=== PATIENT | male | born 1960 | race African-American/Black ===

== ENCOUNTER 2020-05-01 16:49 | Emergency (ER) | payer SELFPAY ==
[2020-05-01 17:13] VITALS: BP 103/60
[2020-05-01] MEDS ORDERED: NORMAL SALINE 1000 ML 1,000 ML IV ONE (18:39)
--- NOTE | 2020-05-01 18:43 | ER Document Report ---
ED General - General Chief Complaint: Fever Stated Complaint: FEVER Time Seen by Provider: 05/01/20 17:55 Mode of Arrival: Ambulatory Information source: Patient Cannot obtain history due to: Unstable vital signs Notes: Patient is a 59-year-old gentleman coming in today with fever and total body aches. No nausea vomiting. No cough. Does not report any chronic medical problems. - Related Data Allergies/Adverse Reactions: No Known Allergies Allergy (Verified 05/01/20 17:23) Past Medical History - Social History Smoking Status: Current Every Day Smoker Family History: Reviewed & Not Pertinent Patient has homicidal ideation: No Review of Systems - Review of Systems Notes: Constitutional: +fevers. No chills. EENT: No eye redness. No eye pain. No ear pain. No sore throat. Cardiovascular: No chest pain. No palpitations. Respiratory: No cough. No shortness of breath. No respiratory distress. Gastrointestinal: No abdominal pain. No nausea, vomiting, or diarrhea. Genitourinary: Atraumatic. No lesions. No pain. No discharge. Musculoskeletal: Atraumatic. No swelling. No deformities. Positive body aches Skin: No rash or lesions. Lymphatic: No swollen lymph nodes. Neurologic: No headache. No syncope. Psychiatric: No suicidal or homicidal ideation. Physical Exam - Vital signs Vitals: Temp Pulse Resp BP Pulse Ox 102.7 F H 119 H 20 103/60 99 05/01/20 17:12 05/01/20 17:12 05/01/20 17:12 05/01/20 17:12 05/01/20 17:12 - Notes Notes: General: Well-developed, well-nourished. In no acute distress. Non-toxic appearing. Malaised appearance Cardiac: Well-perfused. Regular rate and rhythm. No murmurs, rubs, or gallops. Pulmonary: No respiratory distress. No cyanosis. Bilateral lung vickers are clear to auscultation. Abdominal: Non-distended. Non-rigid. Bowels sounds are present in all four quadrants. No guarding or rebound. HEENT: Head is atraumatic. Conjunctivae not reddened. No tearing. PERRL. EOMI. Orbits atraumatic. No periorbital swelling or erythema. Oropharynx is without erythema, swelling, or exudates. Neck: Supple. No adenopathy. No meningismus. Dermatologic: Warm with good turgor. No rash. Atraumatic. Chest: Atraumatic. No chest wall tenderness to palpation. Musculoskeletal: Moves all extremities well. No range of motion deficits. no muscular or joint tenderness. No paraspinal muscle tenderness. no midline spinal tenderness or step-off. Genitourinary: Examination deferred Neurologic: No gross neurologic deficits. Psychiatric: Normal mood. Course - Re-evaluation Re-evalutation: 05/01/20 18:42 Patient definitely sounds like he is suffering from some sort of a viral syndr ome. 2 to 3 days of generalized body aches and fever. We will get a coronavirus and flu swab on him. Chest x-ray also pending. IV fluids and basic lab work. 05/01/20 20:49 Patient is feeling better after Tylenol had a chance to kick in. Flu swab was negative. Chest x-ray did not show any acute infiltrates. Patient seems to be suffering from some type of viral syndrome with coronavirus is part of the differential. Coronavirus testing has been sent and will be called into the patient as soon as resulted. Patient was slightly hypokalemic. He also has some mild renal insufficiency. Will refer him outpatient to Dr. Bass on-call for internal. We will also give him information about [facility]. - Vital Signs Vital signs: Temp Pulse Resp BP Pulse Ox 99.1 F 119 H 20 103/60 99 05/01/20 18:41 05/01/20 17:12 05/01/20 17:12 05/01/20 17:12 05/01/20 17:12 - Laboratory Result Diagrams: 05/01/20 18:10 05/01/20 18:10 Laboratory results interpreted by me: 05/01/20 05/01/20 18:10 18:10 WBC 13.4 H RBC 4.05 L Hgb 12.9 L Hct 34.9 L MCHC 36.8 H Seg Neuts % (Manual) 82 H Band Neutrophils % 1 L Lymphocytes % (Manual) 8 L Metamyelocytes % 2 H Myelocytes % 1 H Promyelocytes % 1 H Abs Neuts (Manual) 11.7 H Potassium 3.2 L Creatinine 1.47 H Est GFR ( Amer) 59 L Est GFR (MDRD) Non-Af 49 L Glucose 191 H Total Bilirubin 1.8 H Direct Bilirubin 0.7 H ALT 91 H Total Protein 6.2 L Albumin 3.3 L Discharge - Discharge Clinical Impression: Viral syndrome Condition: Good Disposition: HOME, SELF-CARE Instructions: Acetaminophen, Fever ([facility]), Viral Syndrome ([facility]) Additional Instructions: Please stay at home and quarantine until you find out the results of your coronavirus test. Forms: Return to Work
[2020-05-01 19:05] LABS: HEMATOCRIT 34.9 % (37.9-51.0); HEMOGLOBIN 12.9 g/dL (13.5-17.0); MEAN CORPUSCULAR HEMOGLOBIN 31.7 pg (27.0-33.4); MEAN CORPUSCULAR HGB CONC 36.8 g/dL (32.0-36.0); MEAN CORPUSCULAR VOLUME 86 fl (80-97); PLATELET COUNT 257 10^3/uL (150-450); RED BLOOD COUNT 4.05 10^6/uL (4.35-5.55); RED CELL DISTRIBUTION WIDTH 13.5 % (11.5-14.0); WHITE BLOOD COUNT 13.4 10^3/uL (4.0-10.5)
[2020-05-01 19:15] LABS: A TYPE INFLUENZA AG NEGATIVE (NEGATIVE); B INFLUENZA AG NEGATIVE (NEGATIVE)
--- NOTE | 2020-05-01 19:16 | RADIOLOGY REPORT (SQ) ---
EXAM DESCRIPTION: CHEST SINGLE VIEW IMAGES COMPLETED DATE/TIME: 05/01/2020 6:59 pm REASON FOR STUDY: cough COMPARISON: None. TECHNIQUE: Single frontal radiographic view of the chest acquired. NUMBER OF VIEWS: One view. LIMITATIONS: None. FINDINGS: LUNGS AND PLEURA: No pneumothorax. Minimal basilar subsegmental atelectasis. No consolid ation or pleural effusion. MEDIASTINUM AND HILAR STRUCTURES: Age-appropriate contour. HEART AND VASCULAR STRUCTURES: Heart normal size. BONES: No acute findings. HARDWARE: None in the chest. OTHER: No other significant finding. IMPRESSION: Minimal basilar subsegmental atelectasis. No consolidation or pleural effusion. TECHNICAL DOCUMENTATION: JOB ID: [id number] 2010 [employer]- All Rights Reserved Reading location - IP/workstation name: [email or web address]
[2020-05-01 19:22] LABS: ALBUMIN 3.3 g/dL (3.5-5.0); ALKALINE PHOSPHATASE 123 U/L (38-126); ANION GAP 9 (5-19); ASPARTATE AMINO TRANSFERASE 45 U/L (17-59); BILIRUBIN,DIRECT 0.7 mg/dL (0.0-0.4); BILIRUBIN,TOTAL 1.8 mg/dL (0.2-1.3); BLOOD UREA NITROGEN 18 mg/dL (7-20); CALCIUM 8.7 mg/dL (8.4-10.2); CARBON DIOXIDE 24 mmol/L (22-30); CHLORIDE 104 mmol/L (98-107); GLUCOSE 191 mg/dL (75-110); POTASSIUM 3.2 mmol/L (3.6-5.0); TOTAL PROTEIN 6.2 g/dL (6.3-8.2)
[2020-05-01] MEDS ORDERED: POTASSIUM CHLORIDE 10 MEQ TABLET.ER PO ONE (20:25)
[2020-05-01 20:32] LABS: ABSOLUTE LYMPHOCYTES# (MANUAL) 1.1 10^3/uL (0.5-4.7); ABSOLUTE MONOCYTES # (MANUAL) 0.5 10^3/uL (0.1-1.4); BAND NEUTROPHILS % (MANUAL) 1 % (3-5); BASOPHILS % (MANUAL) 1 % (0-2); EOSINOPHILS % (MANUAL) 0 % (0-6); LYMPHOCYTES % (MANUAL) 8 % (13-45); MONOCYTES % (MANUAL) 4 % (3-13); SEGMENTED NEUTROPHILS % (MAN) 82 % (42-78); TOTAL CELLS COUNTED 100
[2020-05-01 20:34] LABS: HYPERSEGMENTED NEUTROPHILS PRESENT; OVALOCYTES SLIGHT; PLATELET COMMENT ADEQUATE; POIKILOCYTOSIS SLIGHT; SCHISTOCYTES SLIGHT; TEAR DROP CELLS SLIGHT; TOXIC GRANULATION 1+; TOXIC VACUOLATION PRESENT
[2020-05-01 20:35] LABS: METAMYELOCYTES % (MANUAL) 2 % (0-1); MYELOCYTES % (MANUAL) 1 % (0); PROMYELOCYTES % (MANUAL) 1 % (0)
[2020-05-01] MEDS ORDERED: IBUPROFEN 800 MG TABLET PO ONE (20:38)
[2020-05-02 12:10] LABS: PATH REVIEW PATHOLOGIST REVIEWED
== END 2020-05-01 21:08 | disposition home or self-care (01) ==
LOC: ER 16:49
DX: B34.9 Viral infection, unspecified (principal); R50.9 Fever, unspecified; M79.10 Myalgia, unspecified site; N28.9 Disorder of kidney and ureter, unspecified; E87.6 Hypokalemia; F17.200 Nicotine dependence, unspecified, uncomplicated; Z20.828 Contact with and (suspected) exposure to other viral communicable diseases
CPT/HCPCS: 99284; 96360; 36415; 85025; 87635; 80053; 87804; 71045; J7030; C9803

== ENCOUNTER 2020-05-23 16:06 | Emergency (ER) | payer SELFPAY ==
--- NOTE | 2020-05-23 17:13 | ER Document Report ---
ED Medical Screen (RME) - General Chief Complaint: Urinary Problem Stated Complaint: BLOOD IN URINE Time Seen by Provider: 05/23/20 17:05 - HPI Notes: 05/23/20 17:11 59-year-old male to the emergency department with complaints of painless hematuria that started today. He states that as he starting to make his urine he sees gross blood. He denies any pain with it. Denies any fevers or chills. He was seen last month for fever and a viral syndrome. He tested negative for Covid. He states that he does not take any medicines on a regular basis and has not really needed to see a physician in a long time. He does smoke. He denies any flank pain, chest pain, nausea, vomiting, diarrhea. I performed a brief medical screening exam on the patient determined that the patient needs further evaluation and management by main side provider. I have placed initial orders to help expedite care. - Related Data Allergies/Adverse Reactions: No Known Allergies Allergy (Verified 05/01/20 17:23) Past Medical History - Social History Frequency of alcohol use: None Drug Abuse: None Physical Exam - Vital signs Vitals: Temp Pulse Resp BP Pulse Ox 98.0 F 80 16 126/69 H 97 05/23/20 16:11 05/23/20 16:11 05/23/20 16:11 05/23/20 16:11 05/23/20 16:11 Course - Vital Signs Vital signs: Temp Pulse Resp BP Pulse Ox 98.0 F 80 16 126/69 H 97 05/23/20 16:11 05/23/20 16:11 05/23/20 16:11 05/23/20 16:11 05/23/20 16:11
[2020-05-23 17:36] LABS: ABSOLUTE BASOPHILS # (AUTO) 0.1 10^3/uL (0.0-0.2); ABSOLUTE EOSINOPHILS # (AUTO) 0.1 10^3/uL (0.0-0.6); ABSOLUTE LYMPHOCYTES (AUTO) 2.7 10^3/uL (0.5-4.7); ABSOLUTE MONOCYTES (AUTO) 0.9 10^3/uL (0.1-1.4); ABSOLUTE NEUT (AUTO) 4.1 10^3/uL (1.7-8.2); EOSINOPHILS % (AUTO) 1.2 % (0-6); HEMATOCRIT 31.9 % (37.9-51.0); HEMOGLOBIN 11.5 g/dL (13.5-17.0); MEAN CORPUSCULAR HEMOGLOBIN 31.5 pg (27.0-33.4); MEAN CORPUSCULAR VOLUME 88 fl (80-97); MONOCYTES % (AUTO) 11.1 % (3-13); PLATELET COUNT 377 10^3/uL (150-450); RED BLOOD COUNT 3.64 10^6/uL (4.35-5.55); RED CELL DISTRIBUTION WIDTH 13.9 % (11.5-14.0); SEGMENTED NEUTROPHILS % (AUTO) 52.7 % (42-78); TOTAL CELLS COUNTED % (AUTO) 100 %; WHITE BLOOD COUNT 7.9 10^3/uL (4.0-10.5)
[2020-05-23 17:42] LABS: INTERNATIONAL RATION (INR) 0.93; PROTHROMBIN TIME 12.7 SEC (11.4-15.4)
[2020-05-23 17:43] LABS: PARTIAL THROMBOPLASTIN TIME 26.4 SEC (23.5-35.8)
[2020-05-23 17:59] LABS: ALBUMIN 3.8 g/dL (3.5-5.0); ALKALINE PHOSPHATASE 92 U/L (38-126); ANION GAP 8 (5-19); ASPARTATE AMINO TRANSFERASE 53 U/L (17-59); BILIRUBIN,DIRECT 0.4 mg/dL (0.0-0.4); BILIRUBIN,TOTAL 0.5 mg/dL (0.2-1.3); BLOOD UREA NITROGEN 26 mg/dL (7-20); CALCIUM 8.9 mg/dL (8.4-10.2); CARBON DIOXIDE 29 mmol/L (22-30); CHLORIDE 105 mmol/L (98-107); GLUCOSE 94 mg/dL (75-110); POTASSIUM 4.8 mmol/L (3.6-5.0); TOTAL PROTEIN 7.1 g/dL (6.3-8.2)
[2020-05-23 18:14] LABS: APPEARANCE,URINE SLIGHTLY-CLOUDY; BILIRUBIN,URINE NEGATIVE (NEGATIVE); COLOR,URINE YELLOW; GLUCOSE, URINE NEGATIVE (NEGATIVE); KETONES,URINE NEGATIVE (NEGATIVE); PROTEIN,URINE 30 mg/dL (NEGATIVE); UROBILINOGEN,URINE NEGATIVE mg/dL (<2.0)
[2020-05-24] MEDS ORDERED: CEFTRIAXONE 1 GM/D5W RTU 1 GM/50 ML RTUPB IV ONE (00:58)
--- NOTE | 2020-05-24 01:02 | ER Document Report ---
ED General - General Chief Complaint: Urinary Problem Stated Complaint: BLOOD IN URINE Time Seen by Provider: 05/23/20 17:05 Primary Care Provider: [facility] [Provider Group] - Follow up as needed - HPI Notes: 59-year-old male presents with concerns for blood in his urine. Patient states that he woke up this morning was getting ready for work, when he urinated he noticed that the first portion of his pee had a blood in it, then returned to normal pee. He describes the blood as red in color, he denies passage of clots. He states that this has continued throughout the day. He denies any pain to his abdomen, flanks or suprapubic area. He states this is the first time it has ever happened. He states that he does not take any medication and does not see a doctor. He does smoke. - Related Data Allergies/Adverse Reactions: No Known Allergies Allergy (Verified 05/01/20 17:23) Past Medical History - General Information source: Patient - Social History Smoking Status: Current Every Day Smoker Frequency of alcohol use: None Drug Abuse: None Family History: Reviewed & Not Pertinent Review of Systems - Review of Systems Constitutional: denies: Fever EENT: No symptoms reported Cardiovascular: No symptoms reported Respiratory: No symptoms reported Gastrointestinal: No symptoms reported Genitourinary: See HPI Male Genitourinary: No symptoms reported Musculoskeletal: No symptoms reported Skin: No symptoms reported Hematologic/Lymphatic: No symptoms reported Neurological/Psychological: No symptoms reported Physical Exam - Vital signs Vitals: Temp Pulse Resp BP Pulse Ox 98.0 F 80 16 126/69 H 97 05/23/20 16:11 05/23/20 16:11 05/23/20 16:11 05/23/20 16:11 05/23/20 16:11 - General General appearance: Appears well, Alert In distress: None - HEENT Head: Normocephalic, Atraumatic Extraocular movements intact: Yes Pupils: PERRL - Respiratory Respiratory status: No respiratory distress - Cardiovascular Rhythm: Regular - Abdominal Distension: No distension Tenderness: Nontender - Back Back: Nontender. No: CVA tenderness - Extremities General upper extremity: Normal ROM General lower extremity: Normal ROM - Neurological Neuro grossly intact: Yes Cognition: Normal Orientation: AAOx4 - Psychological Associated symptoms: Normal affect - Skin Skin Temperature: Warm Course - Re-evaluation Re-evalutation: 59-year-old male here with hematuria onset this morning, occurs with initiation of stream, denies passage of clots. No known previous urological issues. On exam he is well-appearing, no tenderness to abdomen, flanks or back. Vital signs stable. He had a laboratory evaluation done through the triage process. No leukocytosis or left shift. Chronic anemia. Coags within normal limits. Electrolytes within normal limits. Creatinine within normal limits and improved from previous. Per lab, urine yellow in color, does have microscopic hematuria. He additionally does have bacteria, white blood cells and positive leuk esterase, consider this to be UTI. Rocephin and fluids ordered. Given that he has no pain or tenderness, less suspicious for renal stone at this time. I additionally discussed with the patient that he needs to establish with a primary care doctor and see urology so that he may have assessment for bladder cancer, he verbalized understanding. - Vital Signs Vital signs: Temp Pulse Resp BP Pulse Ox 98.0 F 60 16 125/61 100 05/24/20 01:57 05/24/20 01:57 05/24/20 01:57 05/24/20 01:57 05/24/20 01:57 - Laboratory Result Diagrams: 05/23/20 17:16 05/23/20 17:16 Laboratory results interpreted by me: 05/23/20 05/23/20 05/23/20 17:16 17:16 17:55 RBC 3.64 L Hgb 11.5 L Hct 31.9 L BUN 26 H Urine Protein 30 H Urine Blood LARGE H Leukocyte Esterase Rfl MODERATE H Discharge - Discharge Clinical Impression: Bacterial UTI Hematuria Qualifiers: Hematuria type: asymptomatic microscopic Qualified Code(s): R31.21 - Asymptomatic microscopic hematuria Disposition: HOME, SELF-CARE Instructions: Urinary Tract Infection ([facility]) Additional Instructions: Take antibiotics as directed, you will be called if antibiotics need to be changed based on urine culture. Please drink plenty of fluids. Please establish care with a primary care doctor, have provided contact information for [facility]. You should additionally see urology as well, see below for contact information. Return to the emergency department for any concerning worsening symptoms. [facility] urology clinic Address: [address] [place], [place] [id number] Prescriptions: Cephalexin Monohydrate [Keflex 500 mg Capsule] 500 mg PO BID 7 Days #14 capsule Referrals: [facility] [Provider Group] - Follow up as needed
[2020-05-24] MEDS ORDERED: RINGERS SOLUTION,LACTATED 1,000 ML IV ONE (01:09)
[2020-05-24 03:16] VITALS: BP 146/77
== END 2020-05-24 03:24 | disposition home or self-care (01) ==
LOC: ER 16:06
DX: N39.0 Urinary tract infection, site not specified (principal); B96.89 Other specified bacterial agents as the cause of diseases classified elsewhere; R31.21 Asymptomatic microscopic hematuria; R39.198 Other difficulties with micturition; R31.9 Hematuria, unspecified; F17.200 Nicotine dependence, unspecified, uncomplicated
CPT/HCPCS: 99284; 96365; 96366; 36415; 87086; 85025; 85610; 85730; 87088; 80053; 81001; J7120; J0696; 87186

== ENCOUNTER 2020-07-29 05:51 | Emergency (ER) | payer BC ==
[2020-07-29] MEDS ORDERED: ONDANSETRON HCL INJ/PF 4 MG/2 ML SDV IV ONE (06:54)
[2020-07-29] MEDS ORDERED: NORMAL SALINE 1000 ML 1,000 ML IV ONE (06:54)
[2020-07-29] MEDS ORDERED: KETOROLAC TROMETHAMINE INJ/PF 30 MG/1 ML SDV IV ONE (06:55)
--- NOTE | 2020-07-29 07:01 | ER Document Report ---
ED General - General Chief Complaint: Scrotal Pain, Acute Onset Stated Complaint: FLANK PAIN RADIATING TO TESTICLES Time Seen by Provider: 07/29/20 06:45 - HPI Notes: Chief complaint: Left groin pain and gross hematuria History of present illness: 59-year-old male awakened this morning with severe pain in his left lower quadrant abdomen radiating into the groin. Associated with nausea and vomiting. No fever chills. Reports mild dysuria. Has not taken any medications for symptoms. His pain is intermittent. Current intensity rated 8/10. Review of the chart shows this man was previously seen here by another provider approximately 2 months ago with a similar complaint. He was treated as a "UTI" at that time. He was given oral Keflex. No imaging was obtained at the time of that visit. Reviewing the urinalysis it looks like he had significant microscopic hematuria with minimal pyuria. The urine was cultured and did not grow anything. He never followed up with urology or primary care provider and does not currently have a physician. The patient does not take any regular medications. He has no known allergies. He denies any prior hospitalizations or surgery. 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 - Related Data Allergies/Adverse Reactions: No Known Allergies Allergy (Verified 05/01/20 17:23) Past Medical History - General Information source: Patient, [facility] Records - Social History Smoking Status: Current Every Day Smoker Frequency of alcohol use: None Drug Abuse: None Lives with: Family Family History: Reviewed & Not Pertinent - Past Medical History Cardiac Medical History: Reports: None Pulmonary Medical History: Reports: None Neurological Medical History: Reports: None Endocrine Medical History: Reports: None Renal/ Medical History: Reports: Other - As per HPI Malignancy Medical History: Reports None GI Medical History: Reports: None Musculoskeletal Medical History: Reports None Traumatic Medical History: Reports: None Surgical Hx: Negative Review of Systems - Review of Systems Notes: Constitutional: Negative for fever. HENT: Negative for sore throat. Eyes: Negative for visual changes. Cardiovascular: Negative for chest pain. Respiratory: Negative for shortness of breath. Gastrointestinal: Per HPI. Genitourinary: As per HPI. Musculoskeletal: Dull pain left flank. Skin: Negative for rash. Neurological: Negative for headaches, focal weakness or numbness. 10 point ROS negative except as marked above and in HPI. Physical Exam - Vital signs Vitals: Temp Pulse Resp BP Pulse Ox 97.7 F 70 24 H 121/74 100 07/29/20 06:00 07/29/20 06:00 07/29/20 06:00 07/29/20 06:00 07/29/20 06:00 - Notes Notes: GENERAL: Male patient of approximately stated age appearing in moderate pain holding left groin area. SKIN: Good turgor no rashes. HEAD: Normocephalic atraumatic. EYES: PERRLA. EOMI. Conjunctivae and sclerae clear. EARS: CANALS AND TMS CLEAR. NOSE: CLEAR. MOUTH: Moist mucosa. Good dentition. No stridor or edema. No drooling. NECK: Supple. No masses or thyromegaly. No adenopathy. Carotids 2+ without bruits. No JVD. BACK: Symmetrical without tenderness. CHEST: Respirations unlabored. Breath sounds clear and symmetrical. HEART: Regular rhythm. No murmur gallop or rub. ABDOMEN: Soft nontender without masses, organomegaly or rebound. Bowel sounds normally active. No bruits. GENITALIA: Normal male. EXTREMITIES: No edema. No calf tenderness. Cap refill less than 1.5 seconds. Dorsalis pedis and posterior tibial pulses 3+ and symmetrical. NEUROLOGICAL: GCS 15. Alert and oriented x3. Normal gait. Fluent speech. Cranial nerves II through XII intact. Sensorimotor and cerebellar normal. Normal tone. PSYCHIATRIC: Anxious affect. Course - Re-evaluation Re-evalutation: 07/29/20 09:34 When this man came in my initial concerns were kidney stone or possible testicular torsion. He really did not have any tenderness or swelling on examination of the scrotum. His overall picture looks much more like a renal stone. I gave him some IV Toradol and IV Zofran along with a liter normal saline IV. We got a noncontrast CT of abdomen and pelvis and this showed small intrarenal stone on the left but no distal obstructing stone. The bladder however showed evidence of a massively enlarged prostate pushing on bladder and also thickening of the bladder wall. He is voiding without difficulty here. I have given him some Flomax. His urine suggests infected urine with only a few red cells but too numerous to count white cells and positive leukocyte esterase. The urine is been cultured. He has received IV Rocephin. Follow-up exam at this time shows this gentleman is asymptomatic and tolerating p.o. fluids without difficulty. He appears stable for outpatient urology follow-up. Findings, clinical impression and plan of treatment have been discussed with patient/family. Understanding of current findings and recommendations has been acknowledged by them and there is agreement regarding disposition and follow-up. - Vital Signs Vital signs: Temp Pulse Resp BP Pulse Ox 97.7 F 70 24 H 121/74 100 07/29/20 06:00 07/29/20 06:00 07/29/20 06:00 07/29/20 06:00 07/29/20 06:00 - Laboratory Results Result Diagrams: 07/29/20 08:00 07/29/20 08:00 Laboratory Results Interpreted: 07/29/20 07/29/20 07/29/20 06:30 08:00 08:00 WBC 15.1 H RDW 14.9 H Lymph % (Auto) 10.1 L Absolute Neuts (auto) 12.5 H Seg Neutrophils % 82.8 H Glucose 142 H Urine Blood SMALL H Urine Nitrite (Reflex) POSITIVE H Urine Urobilinogen 2.0 H Leukocyte Esterase Rfl LARGE H Critical Laboratory Results Reviewed: Yes Attending or Supervising Physician who Reviewed Labs: LISA GILLETTE - Radiology Results Radiology Results Interpreted: 07/29/20 09:36 Abdomen/Pelvis CT 07/29/20 06:54 IMPRESSION: 1. Enlarged prostate gland with mass effect on the urinary bladder. Diffuse bladder wall thickening which can be seen with chronic bladder outlet obstruction, acute or chronic cystitis. Clinical correlation and correlation with urinalysis recommended. 2. Nonobstructing left renal calculus. No hydronephrosis. No evidence of obstructing renal or ureteral calculus. 3. Limited evaluation due to motion. Within the limits of the examination, there is no evidence of acute abnormality in the abdomen or pelvis. Critical Radiology Results Reviewed: Yes Attending or Supervising Physician who Reviewed Radiology: LISA GILLETTE Discharge - Discharge Clinical Impression: Urinary tract infection Qualifiers: Urinary tract infection type: site unspecified Hematuria presence: with hematuria Qualified Code(s): N39.0 - Urinary tract infection, site not specified; R31.9 - Hematuria, unspecified BPH (benign prostatic hyperplasia) Qualifiers: Lower urinary tract symptom presence: symptoms present Lower urinary tract symptom detail: unspecified Qualified Code(s): N40.1 - Benign prostatic hyperplasia with lower urinary tract symptoms Condition: Stable Disposition: HOME, SELF-CARE Instructions: Cephalexin ([facility]), Urinary Tract Infection ([facility]) Additional Instructions: You have evidence of a lower urinary tract infection and enlargement of your prostate gland. Increase oral fluids. Take prescribed medications as instructed. You have been provided a work note for the next 3 days. You have been provided a work note for the next 3 days. Follow-up with urology specialist. A name and telephone number will be provided for you. Return here as needed for new or worsening symptoms: Pain that is worsening or unimproved Uncontrolled vomiting High fever or shaking chills Overall worsening Prescriptions: Tamsulosin HCl [Flomax 0.4 mg Cap.sr] 0.4 mg PO DAILY #7 cap.sr.24h Cephalexin Monohydrate [Keflex 500 mg Capsule] 500 mg PO Q6H 10 Days #40 capsule Ondansetron [Zofran Odt 4 mg Tablet (6 Tab/ER Disp)] 1 tab PO ASDIR PRN 3 Days #15 dspk PRN Reason: Forms: Return to Work Referrals: DANIE VILLATORO MD [NO LOCAL MD] - Follow up as needed
[2020-07-29 08:06] LABS: APPEARANCE,URINE CLOUDY; BILIRUBIN,URINE NEGATIVE (NEGATIVE); COLOR,URINE YELLOW; GLUCOSE, URINE NEGATIVE (NEGATIVE); KETONES,URINE NEGATIVE (NEGATIVE); PROTEIN,URINE NEGATIVE (NEGATIVE); URINE SPECIFIC GRAVITY 1.016
--- NOTE | 2020-07-29 08:21 | RADIOLOGY REPORT (SQ) ---
EXAM DESCRIPTION: CT ABD/PELVIS NO ORAL OR IV IMAGES COMPLETED DATE/TIME: 07/29/2020 6:39 am REASON FOR STUDY: hematuria; pain left groin COMPARISON: None. TECHNIQUE: CT scan of the abdomen and pelvis performed without intravenous or oral contrast. Images reviewed with lung, soft tissue, and bone windows. Reconstructed coronal and sagittal MPR images revi ewed. All images stored on PACS. All CT scanners at this facility use dose modulation, iterative reconstruction, and/or weight based d osing when appropriate to reduce radiation dose to as low as reasonably achievable (ALARA). [facility]: Dose Right [facility]: CareDose [facility]: Dose Right [facility]: Teradose 4D [facility]: Smart WideAngle Metrics RADIATION DOSE: CT Rad equipment meets quality standard of care and radiation dose reduction techniq ues were employed. CTDIvol: 5.2 mGy. DLP: 278 mGy-cm.mGy. LIMITATIONS: Motion artifact. FINDINGS: LOWER CHEST: Atelectasis and respiratory motion. No focal consolidation or pleural effusi on. NON-CONTRASTED LIVER, SPLEEN, ADRENALS: Liver has normal size and contour. Evaluation the parenchyma is limited without IV contrast and due to motion. The spleen has normal size with 2 probable spleni c cysts within the parenchyma. No perisplenic fluid. No adrenal mass. PANCREAS: No masses. No peripancreatic inflammatory changes. GALLBLADDER: No identified stones by CT criteria. No inflammatory changes to suggest cholecystitis. RIGHT KIDNEY AND URETER: No suspicious masses. Assessment limited by lack of IV contrast. No signif icant calcifications. No hydronephrosis or hydroureter. LEFT KIDNEY AND URETER: No suspicious masses. Assessment limited by lack of IV contrast. Punctate n onobstructing left renal calculus at the superior pole. No evidence of obstructing renal or ureteral calculus. No hydronephrosis or hydroureter. AORTA AND RETROPERITONEUM: No aneurysm. No retroperitoneal masses or adenopathy. BOWEL AND PERITONEAL CAVITY: Motion obscures detail. There is no bowel obstruction. No bowel wall t hickening. No definite inflammatory change or fluid. APPENDIX: Not visualized. PELVIS, BLADDER, AND ABDOMINAL WALL:Prostate is enlarged measuring 6.3 x 5.2 cm. Significant mass ef fect on the urinary bladder. Bladder is relatively decompressed. Despite decompressed state bladder wall is diffusely thickened measuring up to 5 mm thickness. No pelvic adenopathy or free fluid. BONES: No suspicious bone lesions. OTHER: No other significant finding. IMPRESSION: 1. Enlarged prostate gland with mass effect on the urinary bladder. Diffuse bladder wall thickening which can be seen with chronic bladder outlet obstruction, acute or chronic cystitis. Clinical corre lation and correlation with urinalysis recommended. 2. Nonobstructing left renal calculus. No hydronephrosis. No evidence of obstructing renal or urete ral calculus. 3. Limited evaluation due to motion. Within the limits of the examination, there is no evidence of a cute abnormality in the abdomen or pelvis. COMMENT: Quality ID # [id number]: Final reports with documentation of one or more dose reduction techniques (e.g., Automated exposure control, adjustment of the mA and/or kV according to patient size, use of iterative reconstruction technique) TECHNICAL DOCUMENTATION: JOB ID: [id number] 2010 [employer]- All Rights Reserved Reading location - IP/workstation name: [email or web address]
[2020-07-29 08:24] LABS: ABSOLUTE BASOPHILS # (AUTO) 0.1 10^3/uL (0.0-0.2); ABSOLUTE LYMPHOCYTES (AUTO) 1.5 10^3/uL (0.5-4.7); ABSOLUTE NEUT (AUTO) 12.5 10^3/uL (1.7-8.2); BASOPHILS % (AUTO) 0.4 % (0-2); EOSINOPHILS % (AUTO) 0.1 % (0-6); HEMATOCRIT 39.9 % (37.9-51.0); HEMOGLOBIN 14.3 g/dL (13.5-17.0); LYMPHOCYTES % (AUTO) 10.1 % (13-45); MEAN CORPUSCULAR HEMOGLOBIN 30.6 pg (27.0-33.4); MEAN CORPUSCULAR HGB CONC 35.9 g/dL (32.0-36.0); MEAN CORPUSCULAR VOLUME 85 fl (80-97); MONOCYTES % (AUTO) 6.6 % (3-13); PLATELET COUNT 282 10^3/uL (150-450); RED BLOOD COUNT 4.68 10^6/uL (4.35-5.55); RED CELL DISTRIBUTION WIDTH 14.9 % (11.5-14.0); SEGMENTED NEUTROPHILS % (AUTO) 82.8 % (42-78); TOTAL CELLS COUNTED % (AUTO) 100 %; WHITE BLOOD COUNT 15.1 10^3/uL (4.0-10.5)
[2020-07-29 08:40] LABS: ALBUMIN 4.1 g/dL (3.5-5.0); ALKALINE PHOSPHATASE 83 U/L (38-126); ANION GAP 8 (5-19); ASPARTATE AMINO TRANSFERASE 21 U/L (17-59); BILIRUBIN,TOTAL 0.9 mg/dL (0.2-1.3); BLOOD UREA NITROGEN 13 mg/dL (7-20); CALCIUM 9.5 mg/dL (8.4-10.2); CARBON DIOXIDE 26 mmol/L (22-30); CHLORIDE 105 mmol/L (98-107); GLUCOSE 142 mg/dL (75-110); POTASSIUM 4.1 mmol/L (3.6-5.0); TOTAL PROTEIN 7.5 g/dL (6.3-8.2)
[2020-07-29] MEDS ORDERED: CEFTRIAXONE INJ 1000 MG VIAL IV ONE (08:44)
[2020-07-29] MEDS ORDERED: TAMSULOSIN HCL 0.4 MG CAP.SR.24H PO ONE (08:44)
[2020-07-29 09:54] VITALS: BP 123/49
== END 2020-07-29 09:58 | disposition home or self-care (01) ==
LOC: ER 05:51
DX: N40.1 Benign prostatic hyperplasia with lower urinary tract symptoms (principal); N39.0 Urinary tract infection, site not specified; R31.9 Hematuria, unspecified; N20.0 Calculus of kidney; R30.0 Dysuria; R10.32 Left lower quadrant pain; R11.2 Nausea with vomiting, unspecified; F17.200 Nicotine dependence, unspecified, uncomplicated
CPT/HCPCS: 99285; 96361; 96375; 96365; 36415; 87086; 85025; 87088; 80053; 81001; 87186; 74176; J1885; J0696; J2405; J7030

== ENCOUNTER 2020-08-10 14:44 | Emergency (ER) | payer BC ==
--- NOTE | 2020-08-10 16:23 | ER Document Report ---
ED Medical Screen (RME) - General Chief Complaint: Abdominal Pain Stated Complaint: SHORTNESS OF BREATH/ABDOMINAL PAIN Time Seen by Provider: 08/10/20 16:02 Mode of Arrival: Wheelchair Information source: Patient Notes: HPI; 59-year-old male presents to the emergency room with persistent left lower quadrant pain for the past 2 weeks. States he was seen here on 1225 was diagnosed with a UTI states he was unable to get his antibiotics until the 28 is still having pain. Denies any urinary symptoms. No nausea, no vomiting, no fevers. PE: Alert and oriented x3. Lungs: Clear to auscultation without rales, rhonchi, wheezes. Heart: Regular rate rhythm without murmurs, rubs, gallops. I have greeted and performed a rapid initial assessment of this patient. A comprehensive ED assessment and evaluation of the patient, analysis of test results and completion of the medical decision making process will be conducted by additional ED providers. I have specifically instructed the patient or family members with the patient to immediately return to any nursing staff should anything change in the patient's condition or with their chief complaint. TRAVEL OUTSIDE OF THE [place] IN LAST 30 DAYS: No - Related Data Allergies/Adverse Reactions: No Known Allergies Allergy (Verified 08/10/20 16:10) Home Medications: cephalexin Past Medical History - Social History Frequency of alcohol use: None Physical Exam - Vital signs Vitals: Temp Pulse Resp BP Pulse Ox 98.4 F 78 16 116/75 99 08/10/20 15:12 08/10/20 15:12 08/10/20 15:12 08/10/20 15:12 08/10/20 15:12 Course - Vital Signs Vital signs: Temp Pulse Resp BP Pulse Ox 98.4 F 78 16 116/75 99 08/10/20 15:12 08/10/20 15:12 08/10/20 15:12 08/10/20 15:12 08/10/20 15:12
[2020-08-10 18:54] LABS: ABSOLUTE BASOPHILS # (AUTO) 0.1 10^3/uL (0.0-0.2); ABSOLUTE EOSINOPHILS # (AUTO) 0.2 10^3/uL (0.0-0.6); ABSOLUTE LYMPHOCYTES (AUTO) 3.6 10^3/uL (0.5-4.7); ABSOLUTE MONOCYTES (AUTO) 0.6 10^3/uL (0.1-1.4); ABSOLUTE NEUT (AUTO) 3.8 10^3/uL (1.7-8.2); BASOPHILS % (AUTO) 0.6 % (0-2); EOSINOPHILS % (AUTO) 2.3 % (0-6); HEMATOCRIT 42.3 % (37.9-51.0); HEMOGLOBIN 15.1 g/dL (13.5-17.0); LYMPHOCYTES % (AUTO) 44.2 % (13-45); MEAN CORPUSCULAR HEMOGLOBIN 30.6 pg (27.0-33.4); MEAN CORPUSCULAR HGB CONC 35.7 g/dL (32.0-36.0); MEAN CORPUSCULAR VOLUME 86 fl (80-97); MONOCYTES % (AUTO) 6.8 % (3-13); PLATELET COUNT 468 10^3/uL (150-450); RED BLOOD COUNT 4.92 10^6/uL (4.35-5.55); RED CELL DISTRIBUTION WIDTH 14.8 % (11.5-14.0); SEGMENTED NEUTROPHILS % (AUTO) 46.1 % (42-78); TOTAL CELLS COUNTED % (AUTO) 100 %; WHITE BLOOD COUNT 8.2 10^3/uL (4.0-10.5)
[2020-08-10 18:59] LABS: APPEARANCE,URINE CLEAR; BILIRUBIN,URINE NEGATIVE (NEGATIVE); COLOR,URINE YELLOW; GLUCOSE, URINE NEGATIVE (NEGATIVE); KETONES,URINE NEGATIVE (NEGATIVE); LEUKOCYTE ESTERASE,URINE NEGATIVE (NEGATIVE); NITRITE,URINE NEGATIVE (NEGATIVE); PROTEIN,URINE NEGATIVE (NEGATIVE)
[2020-08-10 19:17] LABS: ALBUMIN 4.1 g/dL (3.5-5.0); ALKALINE PHOSPHATASE 73 U/L (38-126); ANION GAP 8 (5-19); ASPARTATE AMINO TRANSFERASE 23 U/L (17-59); BILIRUBIN,DIRECT 0.2 mg/dL (0.0-0.4); BILIRUBIN,TOTAL 0.5 mg/dL (0.2-1.3); BLOOD UREA NITROGEN 15 mg/dL (7-20); CALCIUM 9.8 mg/dL (8.4-10.2); CARBON DIOXIDE 30 mmol/L (22-30); CHLORIDE 101 mmol/L (98-107); GLUCOSE 101 mg/dL (75-110); POTASSIUM 4.2 mmol/L (3.6-5.0); TOTAL PROTEIN 7.4 g/dL (6.3-8.2)
--- NOTE | 2020-08-11 01:18 | ER Document Report ---
ED GI/ - General Chief Complaint: Abdominal Pain Stated Complaint: ABDOMINAL PAIN LOWER Time Seen by Provider: 08/10/20 16:02 Primary Care Provider: [facility] [Provider Group] - Follow up as needed [facility] [Provider Group] - Follow up as needed [facility] [Provider Group] - Follow up as needed [facility] [Provider Group] - Follow up as needed DANIE VILLATORO MD [NO LOCAL MD] - Follow up as needed Mode of Arrival: Wheelchair Information source: Patient Notes: 59-year-old male presented to ED for complaint of left lower quadrant pain that has been persistent for the last 2 weeks. He was seen here on and diagnosed with a UTI and started on antibiotics. He did not go and get his antibiotics until the . He states he was still having pain in his left lower quadrant. He no longer had any urinary symptoms no nausea no vomiting or no fever. He was alert oriented respirations regular nonlabored speaking in full sentences. Constitutional: Negative for fever. HENT: Negative for sore throat. Eyes: Negative for visual changes. Cardiovascular: Negative for chest pain. Respiratory: Negative for shortness of breath. Gastrointestinal: Left lower quadrant abdominal pain Genitourinary: Negative for dysuria. Musculoskeletal: Negative for back pain. Skin: Negative for rash. Neurological: Negative for headaches, weakness or numbness. 10 point ROS negative except as marked above and in HPI. VITAL SIGNS: Within normal limits. GENERAL: No acute distress, non-toxic appearance. HEAD: Normal with no signs of head trauma. EYES: PERRLA, EOMI, conjunctiva normal, no discharge. EARS: Hearing grossly intact. NOSE: Normal. THROAT: Oropharynx is normal. NECK: Normal range of motion, no tenderness, supple, no lymphadenopathy, No adenopathy, no JVD. CHEST: Clear breath sounds bilaterally. No wheezes, rales, or rhonchi. CARDIAC: Regular rate and rhythm. S1 and S2, without murmurs, gallops, or rubs. VASCULAR: No Edema. Peripheral pulses normal and equal in all extremities. ABDOMEN: Left lower quadrant tenderness with no fever. Labs were negative he just been seen on and diagnosed with enlarged prostate and UTI. The urine is now clear. Patient states he had not followed up with urology concerning his enlarged prostate. He states he is not having any diarrhea or any new symptoms he just is never got any relief from his pain from last time. When I did palpate his stomach and less I was asking him did not hurt here he did not have any any noticeable tenderness to the left side but if I specifically asked him was it tender then it was tender. GASTROINTESTINAL: Bowel sounds normal GENITOURINARY: Normal, No tenderness LYMPATHTIC: No lymphadenopathy noted. MUSCULOSKELETAL: Good range of motion of all major joints. Extremities without clubbing, cyanosis or edema. NEUROLOGICAL: Alert and oriented x 3. No focal sensory or strength deficits. Speech normal. Follows commands appropriately. PSYCHIATRIC: Normal Affect, judgement and mood. SKIN: Normal appearance with no rashes or lesions. TRAVEL OUTSIDE OF THE [place] IN LAST 30 DAYS: No - HPI Patient complains to provider of: Abdominal pain Onset: Other - 2 weeks Severity at maximum: Mild Severity in ED: Mild Pain Level: 1 Location: LLQ Associated symptoms: denies: Diarrhea, Nausea, Urinary frequency, Urinary urgency, Vomiting Exacerbated by: Denies Relieved by: Denies Similar symptoms previously: Yes Recently seen / treated by doctor: Yes - Related Data Allergies/Adverse Reactions: No Known Allergies Allergy (Verified 08/10/20 16:10) Home Medications: cephalexin Past Medical History - General Information source: Patient - Social History Smoking Status: Current Every Day Smoker Cigarette use (# per day): Yes - 4 cigarettes a day Smoking Education Provided: Yes - 3 min Frequency of alcohol use: None Drug Abuse: None Family History: Reviewed & Not Pertinent Patient has suicidal ideation: No Patient has homicidal ideation: No - Past Medical History Cardiac Medical History: Reports: None Pulmonary Medical History: Reports: None EENT Medical History: Reports: None Neurological Medical History: Reports: None Endocrine Medical History: Reports: None Renal/ Medical History: Reports: Hx Benign Prostatic Hyperplasia, Hx Kidney Stones Malignancy Medical History: Reports None GI Medical History: Reports: None Musculoskeletal Medical History: Reports None Skin Medical History: Reports None Psychiatric Medical History: Reports: None Traumatic Medical History: Reports: None Infectious Medical History: Reports: None Surgical Hx: Negative Past Surgical History: Reports: None Physical Exam - Vital signs Vitals: Temp Pulse Resp BP Pulse Ox 98.4 F 78 16 116/75 99 08/10/20 15:12 08/10/20 15:12 08/10/20 15:12 08/10/20 15:12 08/10/20 15:12 Course - Re-evaluation Re-evalutation: 08/11/20 09:28 Patient verbalized understanding of need to follow-up with the urologist and primary care doctor. He has no objective exam at this time. He did stated he was continuing to have left lower quadrant pain. He states his pain level was a 1. He did not wince or grimace during his exam for his abdominal tenderness. He did have active bowel sounds with soft abdomen. He was discharged home with instructions to follow-up with the urologist as previously instructed. He states he did not know he was supposed to follow-up with anybody. - Vital Signs Vital signs: Temp Pulse Resp BP Pulse Ox 97.9 F 61 17 147/75 H 99 08/11/20 01:55 08/11/20 01:55 08/11/20 01:55 08/11/20 01:55 08/11/20 01:55 - Laboratory Results Result Diagrams: 08/10/20 18:02 08/10/20 18:02 Laboratory Results Interpreted: 08/10/20 08/10/20 18:02 18:02 RDW 14.8 H Plt Count 468 H Urine Blood SMALL H Urine Urobilinogen 2.0 H Critical Laboratory Results Reviewed: No Critical Results - Radiology Results Critical Radiology Results Reviewed: No Critical Results Discharge - Discharge Clinical Impression: Left lower quadrant abdominal pain Condition: Stable Disposition: HOME, SELF-CARE Additional Instructions: You were recently seen for a UTI with a nonobstructing kidney stone and an enlarged prostate gland. You are instructed to take your antibiotics and medications as prescribed and then to follow-up with the urologist Dr. Villatoro. You stated you did not know you needed to follow-up with another doctor. I have rewritten the follow-up doctor's name on your chart please follow-up with Dr. Villatoro Please complete your medications as prescribed use Tylenol or Motrin for your discomfort. Drink plenty of fluids Acetaminophen Acetaminophen may be taken for pain relief or fever control. It's much safer than aspirin, offering a wider range of "safe" dosages. It is safe during . Some brand names are Tylenol, Panadol, Datril, Anacin 3, Tempra, and Liquiprin. Acetaminophen can be repeated every four hours. The following are maximum recommended dosages: WEIGHT Dose Drops Elixir Chewable(80mg) (LBS.) drprs=droppers tsp=teaspoon 6 40 mg .4 ml (1/2) 6-11 80 mg .8 ml (full) 1/2 tsp 1 tab 12-16 120 mg 1 1/2 drprs 3/4 tsp 1 1/2 tabs 17-23 160 mg 2 drprs 1 tsp 2 tabs 24-30 240 mg 3 drprs 1 1/2 tsp 3 tabs 30-35 320 mg 2 tsp 4 tabs 36-41 360 mg 2 1/4 tsp 4 1/2 tabs 42-47 400 mg 2 1/2 tsp 5 tabs 48-53 480 mg 3 tsp 6 tabs 54-59 520 mg 3 1/4 tsp 6 1/2 tabs 60-64 560 mg 3 1/2 tsp 7 tabs 65-70 600 mg 3 3/4 tsp 7 1/2 tabs 71-76 640 mg 4 tsp 8 tabs 77-82 720 mg 4 1/2 tsp 9 tabs 83-88 800 mg 5 tsp 10 tabs >89 pounds or adults 650 mg to 900 mg Acetaminophen can be repeated every four hours. Maximum daily dose not to exceed 4000 mg. These maximum recommended dosages are slightly higher than the dosages written on the product container, but these dosages are very safe and well below the toxic dosage for acetaminophen. Ibuprofen Ibuprofen is an excellent, safe drug for pain control. In addition, it has potent antiinflammatory effects which are beneficial, especially in the treatment of injuries, arthritis, or tendonitis. It's best to take ibuprofen with food. Persons with ulcer disease or allergy to aspirin should notify their physician of this before taking ibuprofen. Take the medication exactly as prescribed. Don't take additional doses unless instructed to do so by your doctor. If you develop wheezing, shortness of breath, hives, faintness, stomach pain, vomiting, or dark black stools, return for re-evaluation at once. FOLLOW-UP CARE: If you have been referred to a physician for follow-up care, call the physicians office for an appointment as you were instructed or within the next two days. If you experience worsening or a significant change in your symptoms, notify the physician immediately or return to the Emergency Department at any time for re-evaluation. Forms: Return to Work Referrals: DANIE VILLATORO MD [NO LOCAL MD] - Follow up as needed [facility] [Provider Group] - Follow up as needed [facility] [Provider Group] - Follow up as needed [facility] [Provider Group] - Follow up as needed [facility] [Provider Group] - Follow up as needed
[2020-08-11 01:56] VITALS: BP 147/75
== END 2020-08-11 01:55 | disposition home or self-care (01) ==
LOC: ER 14:44
DX: N39.0 Urinary tract infection, site not specified (principal); R10.32 Left lower quadrant pain; F17.210 Nicotine dependence, cigarettes, uncomplicated; Z87.442 Personal history of urinary calculi
CPT/HCPCS: 36415; 80053; 81001; 85025; 99283; 99406

== ENCOUNTER 2020-09-01 07:43 | Emergency (ER) | payer BC ==
--- NOTE | 2020-09-01 08:21 | RADIOLOGY REPORT (SQ) ---
EXAM DESCRIPTION: CHEST SINGLE VIEW IMAGES COMPLETED DATE/TIME: 09/01/2020 8:12 am REASON FOR STUDY: SOB COMPARISON: 05/01/2020 EXAM PARAMETERS: NUMBER OF VIEWS: One view. TECHNIQUE: Single frontal radiographic view of the chest acquired. RADIATION DOSE: NA LIMITATIONS: None. FINDINGS: LUNGS AND PLEURA: Subtle hazy opacification is seen at the left lung base. The lungs are otherwise clear and evenly aerated. No pleural effusion. No pneumothorax. MEDIASTINUM AND HILAR STRUCTURES: No masses. Contour normal. HEART AND VASCULAR STRUCTURES: Heart normal in size. Normal vasculature. BONES: No acute findings. HARDWARE: None in the chest. OTHER: No other significant finding. IMPRESSION: In the appropriate clinical setting, findings are consistent with developing left lung b ase pneumonia. TECHNICAL DOCUMENTATION: JOB ID: [id number] [email or web address] All Rights Reserved Reading location - IP/workstation name: [email or web address]
[2020-09-01] MEDS ORDERED: NORMAL SALINE 1000 ML 1,000 ML IV ONE (08:32)
[2020-09-01] MEDS ORDERED: ACETAMINOPHEN 325 MG TABLET PO ONE (08:32)
--- NOTE | 2020-09-01 08:39 | ER Document Report ---
Entered by DARIO THOMPSON SCRIBE 09/01/20 0803 Acting as scribe for:ILIANA LAUREN MD ED General - General Chief Complaint: Shortness Of Breath Stated Complaint: SHORTNESS OF BREATH,COUGH Time Seen by Provider: 09/01/20 08:01 Primary Care Provider: MITZI GAUTAM [NO LOCAL MD] - Follow up as needed Mode of Arrival: Medic Information source: Patient Notes: This 59 year old male patient with no significant past medical history presents to the ED today via [facility] with complaints of cough for the past x2 weeks. Patient reports associated shortness of breath and subjective fevers. He did not receive a flu shot this year. He does not take any regular medications. No known drug allergies. [place] TRAVEL OUTSIDE OF THE [place] IN LAST 30 DAYS: No - Related Data Allergies/Adverse Reactions: No Known Allergies Allergy (Verified 09/01/20 07:45) Past Medical History - General Information source: Patient, [facility] Records - Social History Smoking Status: Current Every Day Smoker Cigarette use (# per day): Yes - 1 ppd Chew tobacco use (# tins/day): No Smoking Education Provided: No Frequency of alcohol use: None Drug Abuse: None Occupation: Civilian Contractor Family History: Reviewed & Not Pertinent, Other - Father is , unknown cause. Mother is alive and well at age 82. Renal/ Medical History: Reports: Hx Benign Prostatic Hyperplasia, Hx Kidney Stones Surgical Hx: Negative Review of Systems - Review of Systems Constitutional: See HPI, Fever EENT: No symptoms reported Cardiovascular: No symptoms reported Respiratory: See HPI, Cough, Short of breath Gastrointestinal: No symptoms reported Genitourinary: No symptoms reported Male Genitourinary: No symptoms reported Musculoskeletal: No symptoms reported Skin: No symptoms reported Hematologic/Lymphatic: No symptoms reported Neurological/Psychological: No symptoms reported -: Yes All other systems reviewed and negative Physical Exam - Vital signs Vitals: Temp Pulse Resp BP Pulse Ox 100.6 F H 103 H 16 110/68 95 09/01/20 07:47 09/01/20 07:47 09/01/20 07:47 09/01/20 07:47 09/01/20 07:47 Interpretation: Normal - General General appearance: Alert In distress: None - HEENT Head: Normocephalic, Atraumatic Eyes: Normal Extraocular movements intact: Yes Pupils: PERRL Neck: Normal, Supple - Respiratory Respiratory status: No respiratory distress Chest status: Nontender Breath sounds: Normal Chest palpation: Normal - Cardiovascular Rhythm: Regular Heart sounds: Normal auscultation Murmur: No - Abdominal Inspection: Normal Distension: No distension Bowel sounds: Normal Tenderness: Nontender - Abdomen soft Organomegaly: No organomegaly - Back Back: Normal, Nontender - Extremities General upper extremity: Normal inspection General lower extremity: Normal inspection. No: Edema - Neurological Neuro grossly intact: Yes Orientation: AAOx4 John Coma Scale Eye Opening: Spontaneous John Coma Scale Verbal: Oriented [place] Coma Scale Motor: Obeys Commands John Coma Scale Total: 15 - Psychological Associated symptoms: Normal affect, Normal mood - Skin Skin Temperature: Warm Skin Moisture: Dry Skin Color: Normal Course - Re-evaluation Re-evalutation: 09/01/20 11:18 The patient was evaluated during the global COVID-19 pandemic and that diagnosis was suspected/considered upon their initial presentation. Their evaluation, treatment and testing was consistent with current guidelines for patients who present with complaints or symptoms that may be related to COVID-19. Patient did test positive for Covid. He does have elevated D-dimer consistent with Covid. Chest x-ray suggest developing infiltrate left basilar region. Patient has a urinary tract infection. He was seen here on 07/29/2020 with urinary tract infection, grew E. coli that was sensitive to all medications it was tested against. 09/01/20 11:55 The patient is Covid positive. The patient has been circumcised. He denies anal intercourse. There is no good explanation for the urinary tract infections. The urine today will be cultured. 09/01/20 14:07 Patient's oxygen saturation remains 100% on room air, he was walked up and down the hallway and he still remained 100%. He will be discharged with recommendations for home management, isolation, and medication for his urinary tract infection. - Vital Signs Vital signs: Temp Pulse Resp BP Pulse Ox 98.7 F 103 H 20 114/72 100 09/01/20 14:46 09/01/20 07:47 09/01/20 12:00 09/01/20 14:46 09/01/20 14:46 - Laboratory Results Result Diagrams: 09/01/20 08:34 09/01/20 08:34 Laboratory Results Interpreted: 09/01/20 09/01/20 09/01/20 08:34 08:34 08:34 Hgb 12.9 L Hct 36.3 L RDW 14.4 H Lymph % (Auto) 12.9 L D-Dimer 2.35 H Sodium 135.3 L BUN 23 H Creatinine 1.37 H Est GFR (MDRD) Non-Af 53 L Glucose 139 H AST 72 H ALT 83 H Creatine Kinase 192 H Urine Protein Urine Ketones Urine Blood Urine Urobilinogen Ur Leukocyte Esterase SARS-CoV-2 (PCR) 09/01/20 09/01/20 08:34 09:57 Hgb Hct RDW Lymph % (Auto) D-Dimer Sodium BUN Creatinine Est GFR (MDRD) Non-Af Glucose AST ALT Creatine Kinase Urine Protein 100 H Urine Ketones 20 H Urine Blood LARGE H Urine Urobilinogen 2.0 H Ur Leukocyte Esterase LARGE H SARS-CoV-2 (PCR) DETECTED H Critical Laboratory Results Reviewed: Yes - Covid positive Attending or Supervising Physician who Reviewed Labs: ILIANA LAUREN - Radiology Results Critical Radiology Results Reviewed: No Critical Results - Chest x-ray suggest left basilar infiltrate. - EKG Interpretation by Ct EKG shows normal: Sinus rhythm, [place], Intervals, QRS Complexes, ST-T Waves Rate: Normal Rhythm: NSR P Waves: LAE When compared to previous EKG there are: Previous EKG unavailable Discharge - Discharge Clinical Impression: Pneumonia due to 2019-nCoV Urinary tract infection Qualifiers: Urinary tract infection type: site unspecified Hematuria presence: with hematuria Qualified Code(s): N39.0 - Urinary tract infection, site not specified Fever Qualifiers: Fever type: unspecified Qualified Code(s): R50.9 - Fever, unspecified Condition: Stable Disposition: HOME, SELF-CARE Instructions: COVID-19 Guidance for Persons Under Investigation Additional Instructions: Urinary Tract Infection: Your evaluation indicates that you have a urinary tract infection. This is due to germs growing in the bladder. This is a common problem. This infection usually responds quickly to antibiotics. Your antibiotic should be taken exactly as prescribed. Drink plenty of fluids -- three to four quarts a day. Occasionally, a bladder anesthetic will be prescribed to help stop the feeling of urgency until the antibiotic has a chance to clear the infection. This may cause your urine to be dark orange. Certain urine infections require a culture. If the doctor obtained a culture, the results will be back in two days. You should call to see if a change in treatment is needed. A repeat urinalysis after you finish treatment is often recommended. The physician will let you know if further testing is required. Call the doctor if you develop fever, chills, flank pain, inability to urinate, or blood in the urine. Your coughing or shortness of breath is due to the COVID-19 respiratory illness. You should self isolate and rest at home until you are symptom-free and have a negative Covid test. Take the cephalexin as prescribed for your urinary tract infection. Be sure to drink plenty of fluids throughout the day in the evening. Follow-up with your primary care provider as needed. Return to the emergency room if you become short of breath at rest. Current studies suggest the following vitamins and supplements are helpful in managing the COVID-19 infection at home: Vitamin C 500 mg twice daily and Quercetin 250-500 mg twice daily. Zinc 100 mg/day. Melatonin 10 mg at bedtime. Vitamin D 2000 international units/day. Aspirin 81 mg/day. B complex vitamins. Pepcid 40 mg twice daily. RETURN TO THE EMERGENCY ROOM IF ANY NEW OR WORSENING SYMPTOMS. Prescriptions: Cephalexin Monohydrate [Keflex 500 mg Capsule] 500 mg PO TID #20 capsule Forms: Special Work Note Referrals: LOCALMD,NO [NO LOCAL MD] - Follow up as needed I personally performed the services described in the documentation, reviewed and edited the documentation which was dictated to the scribe in my presence, and it accurately records my words and actions.
[2020-09-01 09:04] LABS: ABSOLUTE LYMPHOCYTES (AUTO) 0.9 10^3/uL (0.5-4.7); ABSOLUTE MONOCYTES (AUTO) 0.8 10^3/uL (0.1-1.4); ABSOLUTE NEUT (AUTO) 5.6 10^3/uL (1.7-8.2); BASOPHILS % (AUTO) 0.4 % (0-2); HEMATOCRIT 36.3 % (37.9-51.0); HEMOGLOBIN 12.9 g/dL (13.5-17.0); LYMPHOCYTES % (AUTO) 12.9 % (13-45); MEAN CORPUSCULAR HEMOGLOBIN 29.7 pg (27.0-33.4); MEAN CORPUSCULAR HGB CONC 35.7 g/dL (32.0-36.0); MEAN CORPUSCULAR VOLUME 83 fl (80-97); MONOCYTES % (AUTO) 10.3 % (3-13); PLATELET COUNT 160 10^3/uL (150-450); RED BLOOD COUNT 4.36 10^6/uL (4.35-5.55); RED CELL DISTRIBUTION WIDTH 14.4 % (11.5-14.0); SEGMENTED NEUTROPHILS % (AUTO) 76.4 % (42-78); TOTAL CELLS COUNTED % (AUTO) 100 %; WHITE BLOOD COUNT 7.3 10^3/uL (4.0-10.5)
[2020-09-01 09:19] LABS: ALBUMIN 3.8 g/dL (3.5-5.0); ALKALINE PHOSPHATASE 107 U/L (38-126); ANION GAP 12 (5-19); ASPARTATE AMINO TRANSFERASE 72 U/L (17-59); BILIRUBIN,DIRECT 0.2 mg/dL (0.0-0.4); BILIRUBIN,TOTAL 0.7 mg/dL (0.2-1.3); BLOOD UREA NITROGEN 23 mg/dL (7-20); CALCIUM 8.7 mg/dL (8.4-10.2); CARBON DIOXIDE 24 mmol/L (22-30); CHLORIDE 99 mmol/L (98-107); CREATINE KINASE 192 U/L (55-170); GLUCOSE 139 mg/dL (75-110); TOTAL PROTEIN 7.2 g/dL (6.3-8.2)
[2020-09-01 09:22] LABS: APPEARANCE,URINE CLOUDY; BILIRUBIN,URINE NEGATIVE (NEGATIVE); COLOR,URINE AMBER; GLUCOSE, URINE NEGATIVE (NEGATIVE); KETONES,URINE 20 mg/dL (NEGATIVE); LEUKOCYTE ESTERASE,URINE LARGE (NEGATIVE); NITRITE,URINE NEGATIVE (NEGATIVE); PROTEIN,URINE 100 mg/dL (NEGATIVE); URINE SPECIFIC GRAVITY 1.019
[2020-09-01] MEDS ORDERED: CEFTRIAXONE 1 GM/D5W RTU 1 GM/50 ML RTUPB IV ONE (11:17)
--- NOTE | 2020-09-01 14:44 | EKG REPORT ---
SEVERITY:- ABNORMAL ECG - SINUS RHYTHM PROBABLE LEFT ATRIAL ABNORMALITY : Confirmed by: Clifford Fuller MD 01-Sep-2020 14:43:37
[2020-09-01 14:53] VITALS: BP 114/72
== END 2020-09-01 14:53 | disposition home or self-care (01) ==
LOC: ER 07:43
DX: U07.1 COVID-19 (principal); J12.82 Pneumonia due to coronavirus disease 2019; N39.0 Urinary tract infection, site not specified; R50.9 Fever, unspecified; R05 Cough; R06.02 Shortness of breath; F17.210 Nicotine dependence, cigarettes, uncomplicated
CPT/HCPCS: 93005; 99285; 96361; 96365; 36415; 87040; 87086; 82550; 85025; 0202U; 87088; 80053; 81001; 84484; 87186; 85379; 71045; 93010; J7030; J0696; C9803